=== PATIENT | male | born 1990 | race Caucasian/White ===

== ENCOUNTER 2022-03-19 07:47 | Observation (INO) ==
[2022-03-19 08:36] LABS: Basophils % 0.3 %; Eosinophils % 0.3 %; Hematocrit 40.6 % (37.5-50.1); Immature Granulocytes % 0.2 % (0-4); Lymphocytes # 0.7 K/mcL (0.6-4.6); Lymphocytes % 11.4 %; Mean Corpuscular HGB Conc 34.5 g/dL (31.6-35.5); Mean Corpuscular Hemoglobin 30.6 pg (28.0-33.3); Mean Corpuscular Volume 88.8 fL (83.0-100.0); Mean Platelet Volume 10.7 fL (9.4-12.4); Monocytes # 0.3 K/mcL (0.0-1.3); Neutrophils # 5.1 K/mcL (1.6-8.9); Platelet Count 209 K/mcL (140-400); Red Blood Count 4.57 M/mcL (4.19-5.50); Red Cell Distribution Width 12.5 % (11.5-14.5); Segmented Neutrophils % 82.8 %; White Blood Count 6.2 K/mcL (4.3-11.1)
[2022-03-19] MEDS ORDERED: Dexamethasone Sodium Phos/PF 10 MG/ML VIAL IVP ONE (08:44)
[2022-03-19] MEDS ORDERED: MEROPENEM IVP ONE (08:48)
[2022-03-19] MEDS ORDERED: SODIUM CHLORIDE 0.9% IVP ONE (08:48)
[2022-03-19 08:53] LABS: Prothrombin Time 11.3 Seconds (9.4-12.1)
[2022-03-19 08:56] LABS: Activated Partial Thrombo Time 30.1 Seconds (26.0-36.0)
[2022-03-19 09:02] LABS: Alanine Aminotransferase 22 Units/L (7-52); Albumin 3.9 g/dL (3.5-5.7); Albumin/Globulin Ratio 1.6 (1.1-2.2); Alkaline Phosphatase 64 Units/L (34-104); Aspartate Amino Transferase 23 Units/L (13-39); BUN/Creatinine Ratio 19 (6-26); Bilirubin,Direct 0.1 mg/dL (0.0-0.2); Bilirubin,Indirect 0.5 mg/dL (0.0-1.0); Bilirubin,Total 0.6 mg/dL (0.3-1.0); Blood Urea Nitrogen 19 mg/dL (6-20); Carbon Dioxide 30 mEq/L (23-29); Chloride 104 mEq/L (98-107); Globulin 2.4 g/dL (2.4-3.5); Glucose 114 mg/dL (70-105); Magnesium 1.4 mg/dL (1.6-2.6); Osmolality,Calculated 293 (280-300); Phosphorous 1.2 mg/dL (2.7-4.5); Potassium 3.6 mEq/L (3.5-5.1); Sodium 140 mEq/L (136-145); Total Protein 6.3 g/dL (6.4-8.9); Troponin I < 0.03 ng/mL (< 0.04)
[2022-03-19] MEDS ORDERED: *HR* LORazepam 2 MG/ML VIAL IVP ONE (09:02)
[2022-03-19 09:03] LABS: Influenza A PCR Negative (Negative); Influenza B PCR Negative (Negative); Resp. Syncytial Virus PCR Negative (Negative)
[2022-03-19 09:04] LABS: SARS-CoV-2 by PCR (In House) Negative (Negative)
[2022-03-19] MEDS: 0.9 % Sodium Chloride 1,000 ML IVC SCH ×3 (09:07→14:50)
[2022-03-19 10:35] LABS: Bilirubin,Urine Negative (Negative); Blood,Urine Negative (Negative); Clarity,Urine Clear (Clear); Color,Urine Light-Yellow (Yellow); Glucose,Urine (UA) Normal (Normal); Ketones,Urine Negative (Negative); Leukocyte Esterase,Urine Negative (Negative); Nitrite,Urine Negative (Negative); Protein,Urine Negative (Neg-Trace); Specific Gravity,Urine 1.018 (1.010-1.025); Urobilinogen,Urine Normal (Normal)
[2022-03-19 10:50] LABS: Appearance,CSF Clear (Clear); Red Blood Cell,CSF < 2000 RBC/mcL
[2022-03-19] MEDS: Nicotine 21 MG PATCH.TD24 TD SCH (11:12)
[2022-03-19] MEDS ORDERED: Naloxone 0.4 MG/ML INJ IVP PRN (13:55)
[2022-03-19] MEDS ORDERED: Ondansetron 4 MG/2 ML VIAL IVP PRN (13:55)
[2022-03-19] MEDS ORDERED: Melatonin 3 MG TABLET PO PRN (13:55)
[2022-03-19 17:43] LABS: Glucose,CSF 72 mg/dL (40-70); Total Protein,CSF 33 mg/dL (15-45)
[2022-03-19] MEDS: Acyclovir 800 MG in D5% in Water 250 ML IVPB SCH (18:59)
[2022-03-19] MEDS: *HR* Heparin 5,000 UNIT/ML VIAL SQ SCH (19:01)
[2022-03-19] MEDS ORDERED: ALPRAZolam 1 MG TABLET PO ONE (21:24)
[2022-03-19 22:58] LABS: Amphetamine Screen,Urine Negative ng/mL (Cutoff=1000); Barbiturate Screen,Urine Negative ng/mL (Cutoff=200); Benzodiazepines Screen,Urine Positive ng/mL (Cutoff=200); Cannabinoid Screen,Urine Positive ng/mL (Cutoff = 50); Cocaine Screen,Urine Negative ng/mL (Cutoff= 300); Opiate Screen,Urine Negative ng/mL (Cutoff=300); Phencyclidine Screen,Urine Negative ng/mL (Cutoff=25)
[2022-03-20] MEDS: Acyclovir 800 MG in D5% in Water 250 ML IVPB SCH ×2 (00:35→08:57)
[2022-03-20 01:52] LABS: Basophils % 0.1 %; Hematocrit 39.6 % (37.5-50.1); Hemoglobin 13.5 g/dL (12.9-16.9); Immature Granulocytes % 0.4 % (0-4); Lymphocytes % 6.2 %; Mean Corpuscular HGB Conc 34.1 g/dL (31.6-35.5); Mean Platelet Volume 10.5 fL (9.4-12.4); Monocytes # 0.5 K/mcL (0.0-1.3); Monocytes % 3.1 %; Platelet Count 204 K/mcL (140-400); Red Blood Count 4.35 M/mcL (4.19-5.50); Red Cell Distribution Width 12.7 % (11.5-14.5); Segmented Neutrophils % 90.2 %
[2022-03-20 01:53] LABS: Lymphocytes # 1.1 K/mcL (0.6-4.6); Neutrophils # 15.2 K/mcL (1.6-8.9); White Blood Count 16.9 K/mcL (4.3-11.1)
[2022-03-20 02:10] LABS: BUN/Creatinine Ratio 18 (6-26); Blood Urea Nitrogen 14 mg/dL (6-20); Calcium 8.4 mg/dL (8.6-10.3); Carbon Dioxide 24 mEq/L (23-29); Chloride 108 mEq/L (98-107); Glucose 161 mg/dL (70-105); Osmolality,Calculated 290 (280-300); Potassium 4.2 mEq/L (3.5-5.1); Sodium 138 mEq/L (136-145)
[2022-03-20] MEDS: *HR* Heparin 5,000 UNIT/ML VIAL SQ SCH ×2 (08:57→17:34)
[2022-03-20] MEDS: 0.9 % Sodium Chloride 1,000 ML IVC SCH (08:57)
[2022-03-20] MEDS: ALPRAZolam 1 MG TABLET PO SCH ×4 (08:58→19:32)
[2022-03-20] MEDS: Gabapentin 400 MG CAPSULE PO SCH ×3 (08:58→19:32)
[2022-03-20] MEDS: Nicotine 21 MG PATCH.TD24 TD SCH (08:58)
[2022-03-20] MEDS: Acetaminophen 325 MG TABLET PO PRN ×2 (11:27→17:40)
[2022-03-20] MEDS: Vancomycin 2,000 MG/520 ML IV.SOLN IVPB SCH ×2 (11:27→22:05)
[2022-03-20] MEDS: Ibuprofen 600 MG TABLET PO PRN (19:32)
[2022-03-21 01:56] LABS: Basophils % 0.3 %; Eosinophils % 0.3 %; Hematocrit 37.1 % (37.5-50.1); Hemoglobin 12.4 g/dL (12.9-16.9); Immature Granulocytes % 0.3 % (0-4); Lymphocytes % 17.4 %; Mean Corpuscular HGB Conc 33.4 g/dL (31.6-35.5); Mean Corpuscular Hemoglobin 30.5 pg (28.0-33.3); Mean Corpuscular Volume 91.2 fL (83.0-100.0); Mean Platelet Volume 10.9 fL (9.4-12.4); Monocytes # 0.6 K/mcL (0.0-1.3); Monocytes % 5.4 %; Neutrophils # 8.8 K/mcL (1.6-8.9); Platelet Count 201 K/mcL (140-400); Red Blood Count 4.07 M/mcL (4.19-5.50); Red Cell Distribution Width 13.2 % (11.5-14.5); Segmented Neutrophils % 76.3 %; White Blood Count 11.5 K/mcL (4.3-11.1)
[2022-03-21 02:17] LABS: BUN/Creatinine Ratio 21 (6-26); Blood Urea Nitrogen 18 mg/dL (6-20); Calcium 8.2 mg/dL (8.6-10.3); Carbon Dioxide 25 mEq/L (23-29); Chloride 112 mEq/L (98-107); Glucose 104 mg/dL (70-105); Osmolality,Calculated 292 (280-300); Potassium 3.9 mEq/L (3.5-5.1); Sodium 140 mEq/L (136-145)
[2022-03-21] MEDS: *HR* Heparin 5,000 UNIT/ML VIAL SQ SCH (06:02)
[2022-03-21 07:48] VITALS: BP 113/77; PULSE 55; TEMP 97.6; O2SAT 94
[2022-03-21] MEDS: Gabapentin 400 MG CAPSULE PO SCH (08:15)
[2022-03-21] MEDS: ALPRAZolam 1 MG TABLET PO SCH (08:19)
[2022-03-21] MEDS: Nicotine 21 MG PATCH.TD24 TD SCH (08:23)
[2022-03-21] MEDS ORDERED: levoFLOXacin 750 MG TABLET PO ONE (09:14)
[2022-03-21] MEDS: Vancomycin 2,000 MG/520 ML IV.SOLN IVPB SCH (09:40)
[2022-03-21] MEDS: Ibuprofen 600 MG TABLET PO PRN (12:11)
[2022-03-22 09:55] LABS: HSV 1 Glycoprotein G IgG CSF 0.62 IV (<=0.89)
[2022-03-23 05:26] LABS: Borrelia burgdorferi Abs CSF 0.08 LIV (<=0.99)
== END 2022-03-21 13:00 | disposition home or self-care (01) ==
LOC: EMEROOARM 07:47 → 3NENU 07:47 → SUATTDRO 14:20 → 3NENU 15:32
PROVIDERS: ADMIT Internal Medicine; ATTEND Internal Medicine